=== PATIENT | female | born 1985 | race Caucasian/White ===

== ENCOUNTER 2016-06-10 05:56 | Observation (INO) | payer MEDICAID ==
[2016-06-10] MEDS ORDERED: NS 1,000 ML IV ONE (06:18)
[2016-06-10 06:19] LABS: COLOR YELLOW; LEUKOCYTE ESTERASE,URINE NEGATIVE (NEGATIVE); NITRITE,URINE NEGATIVE (NEGATIVE)
--- NOTE | 2016-06-10 06:21 | EDPHY ---
H & P Stated Complaint: pt c/o RLQ pain x 1 day, no other sx Source: Patient - Medical/Surgical History Hx Asthma: No Hx Chronic Respiratory Disease: No Hx Diabetes: No Hx Cardiac Disease: No Hx Renal Disease: No Hx Cirrhosis: No Hx Alcoholism: No Hx HIV/AIDS: No Hx Splenectomy or Spleen Trauma: No Other PMH: none - Social History Smoking Status: Never smoked HPI/ROS: HPI CHIEF COMPLAINT: Right lower quadrant abdominal pain HISTORY OF PRESENT ILLNESS: this patient otherwise healthy 22-year-old female , she presents emergency room with right lower quadrant abdominal pain describes an achy sensation focally tender in the right lower quadrant. She is currently on her menstrual. At this time. Denies being , denies urinary symptoms, denies back pain. Denies nausea she does tell me that she may have had a fever yesterday. She presents emergency room at 6:15 a.m. in the morning with right lower quadrant abdominal pain she describes 6/10 crampy dull ache nonradiating. Denies being . Past Medical History: Denies significant medical history Past Surgical History:denies significant surgical history Social History: denies daily use of drugs alcohol tobacco products Family History: noncontributory ROS REVIEW OF SYSTEMS: A comprehensive 10 point review of systems is otherwise negative aside from elements mentioned in the history of present illness. Exam Constitutional triage nursing summary reviewed, vital signs reviewed, awake/ alert. Eyes normal conjunctivae and sclera, EOMI, PERRLA. HENT normal inspection, atraumatic, moist mucus membranes, no epistaxis, neck supple/ no meningismus, no raccoon eyes. Respiratory clear to auscultation bilaterally, normal breath sounds, no respiratory distress, no wheezing. Cardiovascular rate normal, regular rhythm, no murmur, no edema, distal pulses normal. Gastrointestinal soft, mild tenderness palpation right lower quadrant, no rebound, no guarding, normal bowel sounds, no distension, no pulsatile mass. Genitourinary no CVA tenderness. Musculoskeletal no midline vertebral tenderness, full range of motion, no calf swelling, no tenderness of extremities, no meningismus, good pulses, neurovascularly intact. Skin pink, warm, & dry, no rash, skin atraumatic. Neurologic awake, alert and oriented x 3, AAOx3, moves all 4 extremities equally, motor intact, sensory intact, CN II-XII intact, normal cerebellar, normal vision, normal speech. Psychiatric normal mood/affect. Heme/Lymph/Immune no lymphadenopathy. Differential diagnosis includes but is not limited to and in no particular order : Bowel obstruction, appendicitis, gallbladder disease, diverticulitis, colitis , enteritis, perforated viscus, gastritis, GERD, esophagitis, urinary tract infection, pyelonephritis, kidney stones Medical Decision Making:This patient had an IV established obtain blood work, check CBC, electrolytes, urinalysis, urine , patient had a CT scan abdomen pelvis with IV contrast to rule out acute appendicitis. Patient declined pain medicine at this time. She will be hydrated IV fluids 1 L normal saline ordered. Re-evaluation: Patient be signed over to Dr. Meadows at 7:00 a.m. shift change to follow up CT scan results for acute appendicitis. (Roberto Hanson) Constitutional: Initial Vital Signs Temperature (C) 36.6 C 06/10/16 06:00 Heart Rate 87 06/10/16 06:00 Respiratory Rate 16 06/10/16 06:00 Blood Pressure 113/79 06/10/16 06:00 O2 Sat (%) 96 06/10/16 06:00 O2 Delivery Mode Room Air Allergies/Adverse Reactions: No Known Allergies Allergy (Unverified 06/10/16 06:05) Home Medications: Medication Instructions Recorded NK [No Known Home Meds] 06/10/16 Medical Decision Making - Diagnostics Imaging: CT scan of the abdomen pelvis read by Dr. Donald George reveals acute appendicitis, 9 mm. No evidence of abscess or perforation. (Zoe Meadows) ED Course/Re-evaluation: 7:00 a.m.-I assumed care of this patient at shift change. CT scan pending. 8:00 a.m.-CT scan results discussed with the patient. Invanz [address] Villa consulted. (Zoe Meadows) Differential Diagnosis: Differential diagnosis includes though it is not limited to ectopic , ovarian cyst, ovarian torsion, PID, UTI, appendicitis. (Zoe Meadows) - Data Points Laboratory Results: Laboratory Results 06/10/16 06:30 06/10/16 06:30 06/10/16 06/10/16 06:30 06:12 WBC 11.16 H 10^3/uL (3.80-9.50) RBC 3.95 L 10^6/uL (4.18-5.33) Hgb 12.2 L g/dL (12.6-16.3) Hct 35.5 L % (38.0-47.0) MCV 89.9 fL (81.5-99.8) MCH 30.9 pg (27.9-34.1) MCHC 34.4 g/dL (32.4-36.7) RDW 12.0 % (11.5-15.2) Plt Count 232 10^3/uL (150-400) MPV 9.5 fL (8.7-11.7) Neut % (Auto) 78.0 H % (39.3-74.2) Lymph % (Auto) 12.5 L % (15.0-45.0) [place] % (Auto) 7.5 % (4.5-13.0) Eos % (Auto) 1.2 % (0.6-7.6) Baso % (Auto) 0.4 % (0.3-1.7) Nucleat RBC Rel Count 0.0 % (0.0-0.2) Absolute Neuts (auto) 8.71 H 10^3/uL (1.70-6.50) Absolute Lymphs (auto) 1.40 10^3/uL (1.00-3.00) Absolute Monos (auto) 0.84 H 10^3/uL (0.30-0.80) Absolute Eos (auto) 0.13 10^3/uL (0.03-0.40) Absolute Basos (auto) 0.04 10^3/uL (0.02-0.10) Absolute Nucleated RBC 0.00 10^3/uL (0-0.01) Immature Gran % 0.4 % (0.0-1.1) Immature Gran # 0.04 10^3/uL (0.00-0.10) PT 13.0 SEC (12.0-15.0) INR 0.99 (0.83-1.16) APTT 22.5 L SEC (23.0-38.0) Sodium 139 mEq/L (134-144) Potassium 4.2 mEq/L (3.5-5.2) Chloride 102 mEq/L (97-110) Carbon Dioxide 26 mEq/l (22-31) Anion Gap 11 mEq/L (8-16) BUN 10 mg/dL (7-23) Creatinine 0.7 mg/dL (0.6-1.0) Estimated GFR > 60 Glucose 87 mg/dL (70-100) Calcium 9.3 mg/dL (8.5-10.4) Total Bilirubin 0.4 mg/dL (0.1-1.4) Conjugated Bilirubin 0.1 mg/dL (0.0-0.5) Unconjugated Bilirubin 0.3 mg/dL (0.0-1.1) AST 22 IU/L (14-46) ALT 29 IU/L (9-52) Alkaline Phosphatase 59 IU/L (38-126) Total Protein 7.3 g/dL (6.3-8.2) Albumin 4.4 g/dL (3.5-5.0) Lipase 109.0 IU/L (23-300) Beta HCG, Qual NEGATIVE Urine Color YELLOW Urine Appearance CLEAR Urine pH 6.0 (5.0-7.5) Ur Specific [place] 1.011 (1.002-1.030) Urine Protein NEGATIVE (NEGATIVE) Urine Ketones NEGATIVE (NEGATIVE) Urine Blood 3+ H (NEGATIVE) Urine Nitrate NEGATIVE (NEGATIVE) Urine Bilirubin NEGATIVE (NEGATIVE) Urine Urobilinogen NEGATIVE EU (0.2-1.0) Ur Leukocyte Esterase NEGATIVE (NEGATIVE) Urine RBC 5-10 H /hpf (0-3) Urine WBC 1-3 /hpf (0-3) Ur Epithelial Cells TRACE /lpf (NONE-1+) Urine Bacteria TRACE H /hpf (NONE SEEN) Hyaline Casts 1-5 /lpf (0-1) Urine Mucus TRACE /lpf (NONE-1+) Ur Culture Indicated? NOT INDICATED (NI) Urine Glucose NEGATIVE (NEGATIVE) Medications Given: Discontinued Medications Fentanyl (Sublimaze) 100 mcg IVP EDNOW ONE Stop: 06/10/16 07:07 Last Admin: 06/10/16 07:13 Dose: Not Given Sodium Chloride (Ns) 1,000 mls @ 0 mls/hr IV ONCE ONE PRN Reason: Wide Open Stop: 06/10/16 06:19 Last Admin: 06/10/16 06:31 Dose: 1,000 mls Departure - Departure Disposition: [facility] Inpatient Acute Clinical Impression: Appendicitis Condition: Fair Referrals: OUT OF STATE,. [Primary Care Provider] - As per Instructions
[2016-06-10 06:22] LABS: BACTERIA TRACE /hpf (NONE SEEN); MUCUS TRACE /lpf (NONE-1+)
[2016-06-10 06:37] LABS: % IMMATURE GRANULYOCYTES 0.4 % (0.0-1.1); ABSOLUTE IMMATURE GRANULOCYTES 0.04 10^3/uL (0.00-0.10); ADD DIFF? NO; ADD MORPH? NO; ADD SCAN? NO; ATYPICAL LYMPHOCYTE FLAG 0 (0-99); FRAGMENT RBC FLAG 0 (0-99); HEMATOCRIT 35.5 % (38.0-47.0); HEMOGLOBIN 12.2 g/dL (12.6-16.3); LEFT SHIFT FLG 0 (0-99); LIPEMIA HEMOLYSIS FLAG 90 (0-99); MEAN CELL HEMOGLOBIN 30.9 pg (27.9-34.1); MEAN CELL HEMOGLOBIN CONCENTR. 34.4 g/dL (32.4-36.7); MEAN CELL VOLUME 89.9 fL (81.5-99.8); MEAN PLATELET VOLUME 9.5 fL (8.7-11.7); PLATELET CLUMPS FLAG 0 (0-99); PLATELET COUNT 232 10^3/uL (150-400); RED BLOOD CELL COUNT 3.95 10^6/uL (4.18-5.33)
[2016-06-10 06:46] LABS: INR 0.99 (0.83-1.16)
[2016-06-10 06:54] LABS: ALANINE AMINOTRANSFERASE 29 IU/L (9-52); ALBUMIN 4.4 g/dL (3.5-5.0); ALKALINE PHOSPHATASE 59 IU/L (38-126); ANION GAP 11 mEq/L (8-16); ASPARTATE AMINOTRANSFERASE 22 IU/L (14-46); BILIRUBIN,TOTAL 0.4 mg/dL (0.1-1.4); BILIRUBIN-CONJUGATED 0.1 mg/dL (0.0-0.5); BILIRUBIN-UNCONJUGATED 0.3 mg/dL (0.0-1.1); CALCIUM 9.3 mg/dL (8.5-10.4); CARBON DIOXIDE 26 mEq/l (22-31); CHLORIDE 102 mEq/L (97-110); CREATININE 0.7 mg/dL (0.6-1.0); GLOMERULAR FILTRATION RATE > 60; GLUCOSE 87 mg/dL (70-100); POTASSIUM 4.2 mEq/L (3.5-5.2); SODIUM 139 mEq/L (134-144); TOTAL PROTEIN 7.3 g/dL (6.3-8.2)
[2016-06-10 06:58] LABS: APTT 22.5 SEC (23.0-38.0)
[2016-06-10] MEDS ORDERED: fentaNYL 100 MCG/2 ML INJ IVP ONE (07:06)
[2016-06-10] MEDS ORDERED: IOPAMIDOL (ISOVUE-300) 50 ML VIAL IV ONE (07:07)
[2016-06-10] MEDS ORDERED: ERTAPENEM 1 GM in NS 100 ML IV ONE (08:03)
--- NOTE | 2016-06-10 08:05 | CT ---
CT Abdomen and Pelvis With Contrast 0721 hours History: Right-sided abdominal pain. Possible appendicitis. Technique: Spiral imaging was obtained through the abdomen and pelvis during the administration of 85 mL Isovue-300 IV contrast. Images were reviewed in multiple planes. Dose reduction techniques were u tilized. CT Abdomen and Pelvis Findings: Appendix: There is moderate thickening of the appendix in the right mid iliac fossa with mild periap pendiceal inflammatory change. The appendix extends superiorly in the retrocecal location from the ce cum with the tip of the appendix at the level of the iliac crest. The appendix measures [address] There is no periappendiceal abscess.. Lung bases: Normal. Liver: Normal. Spleen: Normal. Gallbladder and Bile Ducts: Normal. Pancreas: Normal. Adrenals: Normal. Kidneys: No obstruction or solid masses. Abdominal Aorta: No aneurysm. Pelvic structures: The uterus has a normal contour. No adnexal masses are seen. A cervical cup is in place. There is a tiny amount of physiologic free fluid in the cul-de-sac. Bladder: Normal. Bowel Loops: Normal. No bowel obstruction, ascites, or significant retroperitoneal lymphadenopathy. Skeletal system: Vertebral body heights are well-maintained. The there are no lytic or sclerotic osse ous lesions. Incidental mild to moderate disk bulges are present at L4-L5 and at L5-S1 with associate d moderate spinal stenosis and mild to moderate bilateral neural foraminal stenoses. Impression: 1. Findings compatible with appendicitis. 2. Mild to moderate disk bulges at L4-L5 and L5-S1 with associated spinal and neuroforaminal stenoses . These findings were discussed by telephone with Dr. Zoe Meadows at 0802 hrs.
[2016-06-10] MEDS ORDERED: ONDANSETRON 4 MG/2 ML VIAL IVP PRN (08:28)
[2016-06-10] MEDS ORDERED: HYDROmorphONE/DILAUDID 1 MG/ML SYR IVP PRN ×2 (08:28→14:02)
[2016-06-10] MEDS ORDERED: D5W 1/2 NS W/ 20 KCl/L 1,000 ML IV SCH ×2 (08:30→14:00)
--- NOTE | 2016-06-10 08:48 | GHP ---
[f rep st] HISTORY AND PHYSICAL DATE OF ADMISSION: 06/10/2016 CHIEF COMPLAINT: Abdominal pain. HISTORY OF PRESENT ILLNESS: This is an otherwise healthy 30-year-old female who presents to the emergency department with a 24-hour history of abdominal pain. 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 The pain persisted throughout the day. It has not changed in character. She describes it as a sharp pain with rebound tenderness associated with nausea and no vomiting; 8/10 in intensity when it is worse, and well controlled with IV narcotics. She presents here. She has received some IV fluids and narcotic. States that the pain is well controlled. She denies having any fevers or chills, and otherwise feels well. PAST MEDICAL HISTORY: Significant for ADHD. PAST SURGICAL HISTORY: None. CURRENT MEDICATIONS: Vyvanse. REVIEW OF SYSTEMS: A full 10-point review of systems was performed and, unless explicitly stated above, is otherwise negative. ALLERGIES: None. PHYSICAL EXAMINATION: VITAL SIGNS: Reviewed in the emergency department. Temperature 36.9, blood pressure 98/71, heart rate 90, and she is 94% on room air. GENERAL: She is alert and oriented, in no acute distress. CV: She has a regular rate and rhythm without any murmurs. LUNGS: Clear to auscultation. ABDOMEN: Soft, tender to palpation in the right lower quadrant with rebound tenderness. There are no surgical scars present. EXTREMITIES: Warm and well perfused. LABORATORY DATA: Leukocytosis to 11,000. CT scan shows a retrocecal appendix, dilated, fluid-filled with surrounding inflammation. No signs of perforation. ASSESSMENT AND PLAN: A 30-year-old female with acute appendicitis, does not appear perforated. I discussed the risks, benefits, and alternatives with the patient and recommended laparoscopic appendectomy. After discussing them, we will plan for n.p.o., IV antibiotics and plan to the operating room today as time permits for a laparoscopic appendectomy. /[id number]/MODL MTDD
[2016-06-10] MEDS ORDERED: SKIN ADHESIVE (DERMABOND) 1 EACH TP ONE (09:11)
[2016-06-10] MEDS ORDERED: BUPIVACAINE/EPI 0.25% 30 ML SDV ONE (09:11)
[2016-06-10] MEDS ORDERED: MIDAZOLAM 2 MG/2 ML VIAL ONE (12:29)
[2016-06-10] MEDS ORDERED: fentaNYL 100 MCG/2 ML INJ ONE ×3 (12:36→13:42)
[2016-06-10] MEDS ORDERED: PROPOFOL 200 MG/20 ML VIAL ONE (12:37)
[2016-06-10] MEDS ORDERED: KETOROLAC 30 MG/1 ML SDV ONE (13:25)
--- NOTE | 2016-06-10 14:03 | POSTOPPROG ---
Post Op Note Date of Operation: 06/10/16 Surgeon: Mark Villa Cocktail Server: None Anesthesiologist: Summer Anesthesia: GET(General Endotracheal) Pre-op Diagnosis: appendicitis Post-op Diagnosis: same Procedure: Lap appy Findings: acute, non-perforated appendicitis Inf/Abcess present in the surg proc area at time of surgery?: No EBL: Minimal Specimen(s): appendix
[2016-06-10] MEDS ORDERED: OXYCODONE/APAP 5/325 TAB ONE (14:05)
--- NOTE | 2016-06-10 14:49 | GOP ---
[f rep st] OPERATIVE REPORT DATE OF OPERATION: 06/10/2016 SURGEON: Mark Villa MD REPAIR ELECTRIC MOTOR ASSEMBLER: None. ANESTHESIA: General endotracheal. ANESTHESIOLOGIST: Dr. Wheeler. PREOPERATIVE DIAGNOSIS: Appendicitis. POSTOPERATIVE DIAGNOSIS: Appendicitis. PROCEDURE PERFORMED: Laparoscopic appendectomy. FINDINGS: Acute, indurated, non perforated appendicitis, retrocecal. SPECIMENS: Appendix. ESTIMATED BLOOD LOSS: 10 cc. DESCRIPTION OF PROCEDURE: The patient was greeted in the preoperative suite. Once again, risks, tresa efits, and alternatives were discussed. Consent was signed. She was then brought back to the operat kiko suite, placed on the OR table in supine position. After all anesthesia machines, including SCDs were on and functioning, World Health Organization time-out was performed. General endotracheal anes thesia was then induced without incident. After successful induction, the patient was then prepped a nd draped in typical sterile fashion. I entered the abdomen using the Veress needle in the left uppe r quadrant. After successfully insufflating to 15 mmHg CO2, which was well tolerated by the patient, I entered the abdomen using an infraumbilical curvilinear incision with a 10 mm port and a 0-degree laparoscope using the Visiport technique. Once successfully in the abdomen. I placed 2 additional t rocars, both 5 mm, 1 in the suprapubic, 1 in the left lower quadrant, both under direct visualization . After the ports were placed, I identified the appendix by tracing the taeniae inferiorly. The tania endix was, as the CT scan showed, retrocecal. I flipped the appendix anteriorly. I did take down so me of the white line in order to successfully mobilize it. I developed a plane at the base of the ap pendix between the appendix and the cecum. After this plane was developed, using a single fire blue load Endo ANUPAM stapler, I amputated the appendix from the remainder of the GI tract. I then mobilized it additionally using electrocautery. After successfully mobilizing it, using a single fire white l oad of the same stapler, I amputated the mesoappendix. There was 1 small bleeder in the mesoappendix , which I successfully gained hemostasis using 5 mm clips. After I obtained hemostasis, I irrigated the right lower quadrant out, and saw no other bleeders. I then irrigated the right lower quadrant w ith 1 L sterile saline, noting clear effluent in the suction canister. I then looked around the jose murtaza of the abdomen, and saw no other significant pathology. Local anesthetic was then instilled in to the port sites under direct visualization, which were removed. The infraumbilical port site was t hen reapproximated with an interrupted 0 Vicryl stitch in a [id number] fashion, noting excellent fascial reapproximation. The skin was then closed with 4-0 Monocryl over which Dermabond was placed . The patient was then extubated in the operative suite, and taken to the PACU in satisfactory condi tion. COMPLICATIONS: None. DRAINS: None. COUNTS: All counts were reported as correct. /[id number]/MODL
[2016-06-10] MEDS ORDERED: BISACODYL 10 MG SUPP PR PRN (14:51)
[2016-06-10] MEDS ORDERED: POLYETHYLENE GLYCOL 3350 17 GM PKT PO PRN (14:51)
[2016-06-10] MEDS ORDERED: LACTULOSE 20 GM/30 ML UDCUP PO PRN (14:51)
[2016-06-10] MEDS ORDERED: MAGNESIUM HYDROXIDE 30 ML UDCUP PO PRN (14:51)
[2016-06-10] MEDS: HYDROCODONE/APAP 5/325 TAB PO PRN ×4 (16:39→21:42)
[2016-06-10] MEDS: SENNOSIDES/DOCUSATE SODIUM TAB PO SCH (20:31)
[2016-06-10] MEDS ORDERED: traZODone 50 MG TAB PO PRN (20:44)
[2016-06-10 23:55] VITALS: O2SAT 95
[2016-06-11] MEDS: HYDROCODONE/APAP 5/325 TAB PO PRN ×2 (07:21→07:54)
[2016-06-11 07:45] VITALS: BP 118/78; PULSE 67; RESP 14; TEMP 98
[2016-06-11] MEDS ORDERED: OXYCODONE/APAP 5/325 TAB PO PRN (08:20)
[2016-06-11] MEDS ORDERED: Lisdexamfetamine Dimesylate [Vyvanse] 70 MG PO SCH (09:00)
[2016-06-11] MEDS ORDERED: LISDEXAMFETAMINE DIMESYLATE 70 MG PO SCH (09:00)
[2016-06-11] MEDS: SENNOSIDES/DOCUSATE SODIUM TAB PO SCH (09:55)
== END 2016-06-11 11:46 | disposition home or self-care (01) ==
LOC: F3E 08:42
PROVIDERS: ADMIT Surgery; ATTEND Surgery
PROC: 0DTJ4ZZ Resection of Appendix, Percutaneous Endoscopic Approach (ICD-10-PCS; principal; 2016-06-10 12:00)
DX: K35.80 Unspecified acute appendicitis (principal)
CPT/HCPCS: 44970; 74177; 96365; 96375; 99285; G0378; J1170; J1335; J1885; J2250; J2704; J3010; Q9967